=== PATIENT | female | born 1990 | race Hispanic/Latino ===

== ENCOUNTER 2024-02-12 17:24 | Emergency (ER) | payer SELFPAY ==
[~2024-02-12] VITALS: Ht 172.7 cm; Wt 77.1 kg
[2024-02-12 17:46] VITALS: TEMP 99.4
[2024-02-12] MEDS: FAMOTIDINE 20 MG/2 ML VIAL IV STA (18:09)
[2024-02-12 18:22] LABS: BASOPHILS % 0.4 % (0.0-1.0); EOSINOPHILS # (AUTO) 0.1 (0.0-0.4); EOSINOPHILS % 0.7 % (0.0-6.0); HEMATOCRIT 39.1 % (34.2-44.1); HEMOGLOBIN 13.1 g/dL (12.0-16.0); LYMPHOCYTES # (AUTO) 2.1 (1.0-3.2); LYMPHOCYTES % 20.1 % (18.0-39.1); MEAN CORPUSCULAR HEMOGLOBIN 31.7 pg (28-32); MEAN CORPUSCULAR HGB CONC 33.5 g/dL (31-35); MEAN CORPUSCULAR VOLUME 94.7 fL (81-99); MONOCYTES # (AUTO) 0.6 (0.2-0.8); MONOCYTES % 5.4 % (4.4-11.3); NEUTROPHILS # (AUTO) 7.7 (2.1-6.9); NEUTROPHILS % 73.1 % (38.7-80.0); PLATELET COUNT 293 x10e3/uL (140-360); RED BLOOD COUNT 4.13 x10e6/uL (3.6-5.1); WHITE BLOOD COUNT 10.46 x10e3/uL (4.8-10.8)
[2024-02-12 18:26] LABS: BILIRUBIN,URINE NEGATIVE (NEGATIVE); CLARITY,URINE CLEAR (CLEAR); COLOR,URINE YELLOW (YELLOW); GLUCOSE, URINE NEGATIVE (NEGATIVE); KETONES,URINE NEGATIVE (NEGATIVE); LEUKOCYTE ESTERASE ,URINE NEGATIVE (NEGATIVE); NITRITE,URINE NEGATIVE (NEGATIVE); PH,URINE 6.5 (5 - 7); PROTEIN,URINE DIPSTICK NEGATIVE (NEGATIVE); URINE UROBILINOGEN 0.2 mg/dL (0.2 - 1)
[2024-02-12 18:27] LABS: PREGNANCY TEST, URINE NEGATIVE (NEGATIVE)
[2024-02-12 18:31] LABS: EPITHELIAL CELLS,URINE MANY /LPF; MUCUS,URINE MANY (RARE); TRANSITIONAL EPI CELLS,URINE FEW
[2024-02-12 18:32] LABS: BACTERIA,URINE MODERATE /HPF
[2024-02-12 18:37] LABS: ALBUMIN 4.2 g/dL (3.5-5.0); ALBUMIN/GLOBULIN RATIO 1.1 (0.8-2.0); ANION GAP 14.6 mmol/L (8-16); BILIRUBIN,TOTAL 0.8 mg/dL (0.2-1.2); CALCIUM 9.5 mg/dL (8.4-10.2); CREATININE, SERUM 0.8 mg/dL (0.57-1.11); POTASSIUM 3.6 mmol/L (3.5-5.1)
[2024-02-12] MEDS ORDERED: IOPAMIDOL 370 MG/ML 100 ML INFUS..BTL INJ ONE (19:06)
[2024-02-12 20:00] VITALS: PULSE 88; RESP 17
[2024-02-12] MEDS ORDERED: AMOX TR-K CLV1 EAC2 PO (20:53)
[2024-02-12] MEDS ORDERED: ONDANSETRON ODT4 MG PO (20:53)
[2024-02-12 21:29] VITALS: BP 112/74; PULSE 66; RESP 16; TEMP 98.3; O2SAT 100
== END 2024-02-12 21:30 | disposition home or self-care (01) ==
LOC: ER 17:33
DX: R50.9 Fever, unspecified (principal); K80.50 Calculus of bile duct without cholangitis or cholecystitis without obstruction; R10.31 Right lower quadrant pain
CPT/HCPCS: 36415; 74177; 80053; 81001; 81025; 83690; 85025; 99284; Q9967